=== PATIENT | female | born 1935 | race Caucasian/White ===

== ENCOUNTER → 2016-05-02 | Outpatient (CLI) | payer OTHER, BC ==
--- NOTE | 2016-05-02 11:38 | DX ---
Chest, PA and lateral. History: Cough. Dyspnea. Low O2 sats. Comparison: January 2015. Findings: Heart size is stable. Pulmonary appears normal. Mild peribronchial wall thickening bilatera lly. Patchy opacification right upper lobe and possible early infiltrate slight lower lobe. No eviden ce for pleural effusion or pneumothorax. Degenerative changes seen in the thoracic spine. Levoscoliot ic curvature to the thoracic lumbar junction. Tortuous aorta indicating atherosclerotic disease. Impression: 1. Right upper lobe pneumonia and possible early right lower lobe pneumonia. Underlying bronchitis. 2. Other chronic findings as above.
== END ==
LOC: BMCIMAGING 11:00
PROVIDERS: ATTEND Family Medicine
DX: J18.8 Other pneumonia, unspecified organism (principal)

== ENCOUNTER → 2017-02-21 | Outpatient (CLI) | payer OTHER, BC | LOC: BMCIMAGING 08:44 | PROVIDERS: ATTEND Internal Medicine | CPT/HCPCS: G0202 ==

== ENCOUNTER → 2017-03-06 | Outpatient (CLI) | payer OTHER, BC | LOC: BMCIMAGING 10:26 | PROVIDERS: ATTEND Internal Medicine | DX: R92.8 Other abnormal and inconclusive findings on diagnostic imaging of breast (principal) | CPT/HCPCS: G0206 ==

== ENCOUNTER → 2017-05-29 | Outpatient (CLI) | payer OTHER, BC | LOC: BMCIMAGING 12:54 | PROVIDERS: ATTEND Family Medicine | DX: S89.92XA Unspecified injury of left lower leg, initial encounter (principal); M17.12 Unilateral primary osteoarthritis, left knee; M11.262 Other chondrocalcinosis, left knee ==

== ENCOUNTER → 2018-07-02 | Outpatient (CLI) | payer OTHER, BC | LOC: BMCIMAGING 08:55 | PROVIDERS: ATTEND Internal Medicine | DX: Z12.31 Encounter for screening mammogram for malignant neoplasm of breast (principal); Z80.3 Family history of malignant neoplasm of breast ==

== ENCOUNTER → 2018-07-03 | Outpatient (CLI) | payer OTHER, BC | LOC: BMCIMAGING 11:11 | PROVIDERS: ATTEND Internal Medicine | DX: J98.4 Other disorders of lung (principal) ==

== ENCOUNTER → 2018-07-24 | Outpatient (CLI) | payer OTHER, BC | LOC: BMCLAB 15:01 | PROVIDERS: ATTEND Internal Medicine | DX: I51.7 Cardiomegaly (principal) ==